=== PATIENT | female | born 1945 ===

== ENCOUNTER 2021-08-21 14:30 | Outpatient (CLI) | payer OTHER | END 2021-08-21 14:45 | disposition home or self-care (01) | LOC: PPH VACUNA 14:30 | PROVIDERS: ATTEND Emergency Medicine Pediatric Emergency Medicine | DX: Z23 Encounter for immunization (principal) ==

== ENCOUNTER 2022-08-10 10:53 | Outpatient (CLI) | payer OTHER | END 2022-08-10 10:58 | disposition home or self-care (01) | LOC: PPH VACUNA 10:53 | PROVIDERS: ATTEND Emergency Medicine Pediatric Emergency Medicine | DX: Z23 Encounter for immunization (principal) ==